=== PATIENT | female | born 1995 | race Caucasian/White ===

== ENCOUNTER → 2022-06-04 07:22 | Outpatient (CLI) | payer OTHER, SELFPAY ==
--- NOTE | 2022-06-04 07:24 | DI.US.S_ITS ---
PROCEDURE: US OB <= 14 WEEKS FETUS INDICATIONS: Dating and viability OUTSIDE/PRIOR DATING DATA: Last menstrual period (LMP): 04/04/2022. LMP-based estimated date of delivery (PRADEEP): 01/09/2023. First dating scan (date and location): 06/04/2022. Estimated date of delivery (PRADEEP) from first dating scan: 01/07/2023. TECHNIQUE: Real-time scanning was performed of the fetus and maternal pelvic organs, with image documentation. Endovaginal scanning was also performed to better visualize the fetus and maternal ovaries. COMPARISON: None. FINDINGS: Embryo: Present with crown-rump length of 2.3 cm corresponding to gestational age of 9 weeks 0 days. Heart rate: 165 beats per minute Maternal organs: Ovaries are unremarkable. Probable left corpus luteum. IMPRESSION: Single living intrauterine . [place]-rump length corresponds to a gestational age of 9 weeks 0 days, concordant with clinical dates. We strive to produce accurate, complete, and clear reports of imaging services. To assist us in improving patient care, this report was composed using standard report templates and voice recognition software. Therefore, it may contain abnormal punctuation, insertions and/or omissions. Occasional wrong-word or sound-alike substitutions may occur. Though we review the report and make efforts to correct it, we do recommend that the report be read carefully in proper context to recognize any text inaccuracies. Dictated by: Dre Fernandez M.D. on 06/04/2022 at 11:14 Approved by: Dre Fernandez M.D. on 06/04/2022 at 11:22
== END ==
PROVIDERS: Referring Provider Obstetrics & Gynecology; Visit Provider Obstetrics & Gynecology
DX: Z34.01 Encounter for supervision of normal first pregnancy, first trimester (principal); Z3A.09 9 weeks gestation of pregnancy
CPT/HCPCS: 76801; 76817

== ENCOUNTER 2022-06-14 15:09 | Emergency (ER) | payer OTHER, SELFPAY ==
[2022-06-14 15:28] VITALS: BP 126/70; PULSE 80; RESP 16; TEMP 37; O2SAT 97; BMI 25.8
[2022-06-14] MEDS: ONDANSETRON 4 MG/2 ML INJ IV (18:08)
[2022-06-14] MEDS: SODIUM CHLORIDE 0.9% 1,000 ML 1000 ML IV ×2 (18:08→19:30)
[2022-06-14 18:28] LABS: Blood Urea Nitrogen 7 mg/dL (7-17); Calcium 9.7 mg/dL (8.4-10.2); Carbon Dioxide 23 mmol/L (22-32); Chloride 100 mmol/L (98-107); Estimated Glomerular Filt Rate > 60 mL/min (>60); Glucose 81 mg/dL (70-100); HEMOLYSIS < 15 (0-50); Potassium 4.3 mmol/L (3.4-5.1); Sodium 134 mmol/L (137-145)
[2022-06-14 18:30] LABS: Add Manual Diff / Slide Review NO; Basophils Absolute Auto 0 /uL (0-100); Basophils Percent Auto 0.2 % (0-2); Eosinophils Absolute Auto 0 /uL (0-450); Eosinophils Percent Auto 0.3 % (2-4); Hematocrit 40.7 % (36-46); Hemoglobin 14.5 g/dL (12.0-16.0); Lymphocytes Absolute Auto 1500 /uL (1100-4500); Lymphocytes Percent Auto 14.7 % (25-40); Mean Corpuscular HGB Conc 35.5 % (30-36); Mean Corpuscular Hemoglobin 31.6 PG (26-34); Mean Corpuscular Volume 88.9 fL (80-100); Monocytes Absolute Auto 400 /uL (0-900); Monocytes Percent Auto 4.3 % (3-14); Neutrophils Absolute Auto 8100 /uL (1500-7000); Neutrophils Percent Auto 80.5 % (50-75); Platelet Count 214 X10^3/uL (150-400); Red Blood Cell Count 4.58 X10^6/uL (4.0-5.2); Red Cell Distribution Width 12.7 % (11.6-14.8)
[2022-06-14 18:58] VITALS: BP 133/75; PULSE 87; RESP 18; O2SAT 99
--- NOTE | 2022-06-14 19:09 | ED_ITS ---
HPI - Nausea/Vomiting/Diarrhea General Chief complaint: Nausea/Vomiting/Diarrhea Stated complaint: Ten weeks , cant keep anything down Time Seen by Provider: 06/14/22 18:07 Source: patient Mode of arrival: Ambulatory Limitations: no limitations History of Present Illness HPI Narrative: Patient is a 27-year-old female. at approximately 10 weeks EGA who is here for evaluation of vomiting. She has had vomiting during her 1st trimester for much of this . She does have Zofran at home. She is having some cramping earlier today but that has since stopped. No loss of fluid. No vaginal bleeding. She has had a decrease in her urine output. She tried the Zofran throughout the past couple days without any improvement of symptoms and has been vomiting so came into the emergency department for evaluation. Related Data Home Medications Medication Instructions Recorded Confirmed prenat.vits,leopoldo,[id number] 1 tab PO DAILY 05/25/22 05/25/22 Previous Rx's Medication Instructions Recorded ondansetron 4 mg disintegrating 4 mg PO Q6H PRN nausea and 05/31/22 tablet vomiting #20 tabs nitrofurantoin 100 mg PO Q12H 5 days #9 caps 06/14/22 monohydrate/macrocrystals 100 mg capsule (Macrobid) Allergies Allergy/AdvReac Type Severity Reaction Status Date / Time No Known Drug Allergies Allergy Verified 06/14/22 15:28 Review of Systems Constitutional Constitutional: Reports system reviewed and no additional complaints, except as documented Gastrointestinal Gastrointestinal: Reports system reviewed and no additional complaints, except as documented Genitourinary Genitourinary: Reports system reviewed and no additional complaints, except as documented Integumentary/Breasts Skin/Breast: Reports system reviewed and no additional complaints, except as documented Hematologic/Lymphatic On Anticoagulants: No Patient History Medical History Healthy adult Surgical History (Updated 05/25/22 @ 15:35 by Leda Jacobsen RN) H/O umbilical hernia repair S/P ASA/PRK (advanced surface ablation photorefractive keratectomy) [place] teeth extracted Social History marital status: number of children: 0 household members: spouse lives independently: Yes caregiver/support person: No housing: house pets and animals: Yes (cats, managing litter boxes; aware of toxo precautions) education level: college (austen's degree) 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/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 ) special pauline needs: No travel history: recent ([place]; URI on return) seatbelt use: always water heater temp set < 120 deg: Yes working smoke detector in home: Yes fire extinguisher in home: Yes carbon monox detector in home: Yes firearms in home: No do you feel safe at home: Yes Smoking Status: Never smoker alcohol intake: former (3/week when not ) during the past year weight has: remained stable well-balanced diet: daily or most days daily servings fruits/ve-4 caffeine: Yes (aware of 200mg limit) Type(s) of exercise: aerobic and weight lifting frequency: 5-6 times per week Smoking Status: Never smoker Substance Use Type: does not use Exam Initial Vital Signs Initial Vital Signs: Vital Signs Temperature 98.6 F 06/14/22 15:28 Pulse Rate 80 06/14/22 15:28 Respiratory Rate 16 06/14/22 15:28 Blood Pressure 126/70 06/14/22 15:28 Pulse Oximetry 97 06/14/22 15:28 Oxygen Delivery Method 06/14/22 15:28 Const General: cooperative and comfortable Resp Effort & Inspection: normal respiratory effort Cardio Rate: regular rate Rhythm: regular rhythm GI Inspection: non-distended Other: Soft abdomen Skin General: no rashes or lesions noted Neuro General: patient alert, patient awake and moves all extremities Extrem General: normal to inspection and capillary refill normal Course Orders Ordered: ED Orders 06/14/22 18:05 Basic Metabolic Panel Stat Complete Blood Count AUTO DIFF Stat 06/14/22 18:40 Urine Culture Stat Urine Microscopic Stat Discontinued Medications Sodium Chloride (Normal Saline 0.9%) 1,000 mls @ 1,000 mls/hr IV BOLUS ONE Stop: 06/14/22 17:02 Last Infusion: 06/14/22 18:59 Dose: 0 mls/hr Documented By: Admin: 06/14/22 18:08 Dose: 1,000 mls/hr Documented By: JUSTINA Sodium Chloride (Normal Saline 0.9%) 1,000 mls @ 1,000 mls/hr IV BOLUS ONE Stop: 06/14/22 20:08 Last Admin: 06/14/22 19:30 Dose: 1,000 mls/hr Documented By: CHET Nitrofurantoin Macrocrystals (Nitrofurantoin Er 100 Mg Capsule) 100 mg PO NOW ONE Stop: 06/14/22 19:10 Last Admin: 06/14/22 19:29 Dose: 100 mg Documented By: CHET Ondansetron HCl (Ondansetron 4 Mg/2 Ml Inj) 4 mg IV NOW PRN PRN Reason: Nausea And Vomiting Last Admin: 06/14/22 18:08 Dose: 4 mg Documented By: JUSTINA Vital Signs Vital signs: Vital Signs - 8 hr 06/14/22 15:28 06/14/22 18:58 06/14/22 20:23 Temperature 98.6 F Pulse Rate 80 87 96 H Respiratory Rate 16 18 16 Blood Pressure 126/70 133/75 Pulse Oximetry 97 99 98 Oxygen Delivery Method Room Air Room Air Room Air MDM - Nausea/Vomiting/Diarrhea Lab Data Attestation: I reviewed the patient's lab results. Result diagrams: 06/14/22 18:05 06/14/22 18:05 Labs: Lab Results 06/14/22 06/14/22 06/14/22 Range/Units 18:05 18:05 18:40 WBC 10.0 (4.5-11.0) X10^3/uL RBC 4.58 (4.0-5.2) X10^6/uL Hgb 14.5 (12.0-16.0) g/dL Hct 40.7 (36-46) % MCV 88.9 (80-100) fL MCH 31.6 (26-34) PG MCHC 35.5 (30-36) % RDW 12.7 (11.6-14.8) % Plt Count 214 (150-400) X10^3/uL Neut % (Auto) 80.5 H (50-75) % Lymph % (Auto) 14.7 L (25-40) % [place] % (Auto) 4.3 (3-14) % Eos % (Auto) 0.3 L (2-4) % Baso % (Auto) 0.2 (0-2) % Neut # (Auto) 8100 H (5595-4160) /uL Lymph # (Auto) 1500 (4106-6192) /uL [place] # (Auto) 400 (0-900) /uL Eos # (Auto) 0 (0-450) /uL Baso # (Auto) 0 (0-100) /uL Sodium 134 L (137-145) mmol/L Potassium 4.3 (3.4-5.1) mmol/L Chloride 100 (98-107) mmol/L Carbon Dioxide 23 (22-32) mmol/L BUN 7 (7-17) mg/dL Creatinine 0.54 (0.52-1.04) mg/dL Estimated GFR > 60 (>60) mL/min BUN/Creatinine Ratio 13.0 (6-22) Glucose 81 (70-100) mg/dL Calcium 9.7 (8.4-10.2) mg/dL Urine RBC 1-5/hpf (0-5/HPF) Urine WBC 5-10/hpf H (0-5/HPF) Ur Squamous Epith Cells 0-1 /hpf (0-5/HPF) Ur Transition Epith Cell 0-1/hpf (0-5/HPF) Urine Bacteria Many (>30) H (None) Ur Culture Indicated? Specimen cultured Point of Care Testing Test Results Positive Urine Dip Bedside Urine Glucose Negative Bedside Urine Bilirubin - Negative Bedside Urine Ketone +++ 80 Urine Specific [place] 1.030 Bedside Urine Occult Blood +/- Bedside Urine pH 6.0 Bedside Urine Protein - Negative Bedside Urine Urobilinogen - Negative Bedside Urine Nitrite + Positive Bedside Urine Leukocytes - Negative Esterase MDM Narrative Medical decision making narrative: Patient did receive fluids and she felt much better. She was tolerating oral intake. She did tolerate her antibiotics. Her urinalysis is nitrite positive and given her status will start her on antibiotics. A culture was pending at the time of discharge. A prescription was sent to the pharmacy of her choice. No indication for any radiologic studies. We discussed potentially sending her home with a different nausea medication but she opted just to stick with the Zofran. She was given return precautions. She expressed understanding and agreement. Discharge Plan Departure Patient Disposition: Home Clinical Impression: Nausea and vomiting during Instructions: Nausea of (Alternative Therapy) Activity Restrictions/Additional Instructions: I do recommend that you start taking the antibiotics as directed. They were sent to [facility] per your request. Next dose will be tomorrow. Continue to increase your fluid intake. Return to the emergency department for any new symptoms. Prescriptions: New nitrofurantoin monohyd/m-cryst [Macrobid] 100 mg capsule 100 mg PO Q12H 5 Days Qty: 9 0RF Rx Instructions: must administer with a meal/food No Action ondansetron 4 mg tablet,disintegrating 4 mg PO Q6H PRN (Reason: nausea and vomiting) Qty: 20 2RF prenat.vits,leopoldo,[id number] Tablet 1 tab PO DAILY Referrals: Denny Singletary MD [Primary Care Provider] - Visit Report Forms: Patient Portal/API
[2022-06-14 19:22] LABS: Bacteria Urine Many (>30); RBC Urine 1-5/HPF (0-5/HPF); Squamous Epithelial Cell Urine 0-1 /HPF (0-5/HPF); Transitional Epi Cells Urine 0-1/HPF (0-5/HPF); WBC Urine 5-10/HPF (0-5/HPF)
[2022-06-14 19:23] LABS: Culture Indicated Urine Specimen Cultured
[2022-06-14] MEDS: NITROFURANTOIN ER 100 MG CAPSULE PO (19:29)
[2022-06-14 20:23] VITALS: PULSE 96; RESP 16; O2SAT 98
== END 2022-06-14 20:25 | disposition home or self-care (01) ==
PROVIDERS: Emergency Medicine; Emergency Provider Emergency Medicine; PCP Obstetrics & Gynecology
DX: O21.9 Vomiting of pregnancy, unspecified (principal); Z3A.10 10 weeks gestation of pregnancy
CPT/HCPCS: 36415; 80048; 81003; 81015; 81025; 85025; 87077; 87086; 87186; 96374; 99284; J2405

== ENCOUNTER → 2022-06-30 16:12 | Outpatient (CLI) | payer OTHER, SELFPAY ==
[2022-06-30 18:11] LABS: Add Manual Diff / Slide Review NO; Basophils Absolute Auto 0 /uL (0-100); Basophils Percent Auto 0.3 % (0-2); Eosinophils Absolute Auto 100 /uL (0-450); Eosinophils Percent Auto 1.2 % (2-4); Hematocrit 38.5 % (36-46); Hemoglobin 13.7 g/dL (12.0-16.0); Lymphocytes Absolute Auto 2000 /uL (1100-4500); Lymphocytes Percent Auto 23.7 % (25-40); Mean Corpuscular HGB Conc 35.6 % (30-36); Mean Corpuscular Hemoglobin 31.5 PG (26-34); Mean Corpuscular Volume 88.6 fL (80-100); Monocytes Absolute Auto 600 /uL (0-900); Monocytes Percent Auto 6.9 % (3-14); Neutrophils Absolute Auto 5700 /uL (1500-7000); Neutrophils Percent Auto 67.9 % (50-75); Platelet Count 222 X10^3/uL (150-400); Red Blood Cell Count 4.35 X10^6/uL (4.0-5.2); Red Cell Distribution Width 12.7 % (11.6-14.8); White Blood Cell Count 8.4 X10^3/uL (4.5-11.0)
[2022-06-30 20:24] LABS: Urine N gonorrhoeae NOT DETECTED
[2022-06-30 20:30] LABS: Urine Chlamydia NOT DETECTED
[2022-07-01 05:49] LABS: RPR Screen Non Reactive (Non Reactive)
[2022-07-01 14:04] LABS: Varicella IgG Antibody 688 index (Immune >165)
[2022-07-01 18:36] LABS: Hep C Virus Ab w/Reflex Quant NEGATIVE s/c (NEGATIVE); Hepatitis B Surface Antigen NEGATIVE s/c (NEGATIVE)
[2022-07-01 18:37] LABS: HIV 1 & 2 Ab/Ag 4th Gen Combo NEGATIVE (NEGATIVE); Rubella Antibody IgG 17.6 IU/mL (>15)
== END ==
PROVIDERS: Referring Provider Obstetrics & Gynecology; Visit Provider Obstetrics & Gynecology
DX: Z34.01 Encounter for supervision of normal first pregnancy, first trimester (principal); Z11.3 Encounter for screening for infections with a predominantly sexual mode of transmission; Z3A.12 12 weeks gestation of pregnancy
CPT/HCPCS: 36415; 80055; 86787; 86803; 86850; 86900; 86901; 87389; 87491; 87591

== ENCOUNTER → 2022-07-08 15:06 | Outpatient (CLI) | payer OTHER, SELFPAY | PROVIDERS: Referring Provider Obstetrics & Gynecology; Visit Provider Obstetrics & Gynecology | DX: Z34.92 Encounter for supervision of normal pregnancy, unspecified, second trimester (principal) | CPT/HCPCS: 36415 ==

== ENCOUNTER → 2022-07-29 08:24 | Outpatient (CLI) | payer OTHER, SELFPAY ==
[2022-07-29 13:40] LABS: Appearance Urine UA CLEAR; Bilirubin Urine UA NEGATIVE (NEGATIVE); Color Urine UA YELLOW; Glucose Urine UA NEGATIVE (Negative); Ketones Urine UA NEGATIVE (NEGATIVE); Leukocyte Esterase Urine UA NEGATIVE (NEGATIVE); Nitrite Urine UA NEGATIVE (Negative); Occult Blood Urine UA NEGATIVE (Negative); Protein Urine UA NEGATIVE (Negative); Urobilinogen Urine UA 0.2 E.U./dL (0.2)
== END ==
PROVIDERS: Visit Provider Obstetrics & Gynecology
DX: Z34.01 Encounter for supervision of normal first pregnancy, first trimester (principal)
CPT/HCPCS: 81003; 87086

== ENCOUNTER → 2022-07-29 08:55 | Outpatient (CLI) | payer OTHER, SELFPAY ==
[2022-07-31 20:03] LABS: AFP Value 29.1 ng/mL (.); Gest Age on Col Date 16.6 weeks (.); Insulin Dep Diabetes No (.); OSBR Risk 1IN 10000 (.); Results Report (.); Test Results *Screen Negative* (.)
[2022-08-02 14:44] LABS: PDF SEE PT SCANS
== END ==
PROVIDERS: Referring Provider Obstetrics & Gynecology; Visit Provider Obstetrics & Gynecology
DX: Z34.02 Encounter for supervision of normal first pregnancy, second trimester (principal); Z3A.16 16 weeks gestation of pregnancy
CPT/HCPCS: 36415; 81003; 82105; 87086

== ENCOUNTER → 2022-08-19 14:13 | Outpatient (CLI) | payer OTHER, SELFPAY ==
--- NOTE | 2022-08-19 14:14 | DI.US.S_ITS ---
PROCEDURE: US OB >= 14 WEEKS FETUS INDICATIONS: 20 WEEK ANATOMY SCAN OUTSIDE/PRIOR DATING DATA: Last menstrual period (LMP): 04/04/2022 LMP-based estimated date of delivery (PRADEEP): 01/09/2023. First dating scan (date and location): 06/04/2022 Estimated date of delivery (PRADEEP) from first dating scan: 01/07/2023. The calculations are made using the working PRADEEP of 01/09/2023. TECHNIQUE: Real-time scanning was performed of the fetus, with image documentation and biometric measurements. Endovaginal scanning: Not indicated COMPARISON: None. FINDINGS: General: A single living intrauterine gestation is present. Presentation: Breech. Placenta: Placental position is posterior, without previa. Amniotic fluid index: 13.9 cm, normal range is 5-24 cm. Single deepest vertical pocket is 4.9 cm. heart rate: 160 beats per minute. Maternal cervical canal: 3.9 cm long. Normal lower limit is 2.5 cm. biometrics: Biparietal diameter: 4.5 cm, 19 weeks, 6 days Head circumference: 16.7 cm, 19 weeks, 3 days. Abdominal circumference: 14.4 cm, 19 weeks, 5 days. Femur length: 3.1 cm, 19 weeks, 4 days. Clinically estimated gestational age: 19 weeks, 4 days Composite gestational age from present scan: 19 weeks, 5 days Estimated weight and percentile: 303 g, 48%. Anatomic survey: Neuro: Ventricles are non-dilated at less than 10 mm. Cisterna magna is normal at 3-11 mm. Cerebellum is normal in size and morphology. Nuchal skin fold: Normal at less than 6 mm between 14-21 weeks gestational age. Face: Nose and lips, facial profile are normal. Spine: No evidence for spina bifida. Heart: 4-chambered heart is present, with normal ventricular outflow tracts. Diaphragm: Diaphragm is intact. Stomach: Left-sided stomach is present. Kidneys: No hydronephrosis. Normal is less than 5 mm in 2nd trimester, less than 7 mm in 3rd trimester. Cord: 3-vessel cord has orthotopic insertion. Bladder: Normal in size. Extremities: All 4 extremities identified. IMPRESSION: 1. Single live intrauterine gestation with fetus in breech presentation. heart rate is 160 beats per minute. Normal amount of amniotic fluid. Normal growth. Estimated weight is at 48%. 2. Normal anatomic survey. We strive to produce accurate, complete, and clear reports of imaging services. To assist us in improving patient care, this report was composed using standard report templates and voice recognition software. Therefore, it may contain abnormal punctuation, insertions and/or omissions. Occasional wrong-word or sound-alike substitutions may occur. Though we review the report and make efforts to correct it, we do recommend that the report be read carefully in proper context to recognize any text inaccuracies. Dictated by: Kenji Aguilar M.D. on 08/19/2022 at 17:04 Approved by: Kenji Aguilar M.D. on 08/19/2022 at 17:05
== END ==
PROVIDERS: Referring Provider Obstetrics & Gynecology; Visit Provider Obstetrics & Gynecology
DX: Z34.02 Encounter for supervision of normal first pregnancy, second trimester (principal); Z3A.19 19 weeks gestation of pregnancy
CPT/HCPCS: 76811

== ENCOUNTER → 2022-09-28 09:29 | Outpatient (CLI) | payer OTHER, SELFPAY ==
[2022-09-28 12:23] LABS: Hematocrit 37.9 % (36-46); Hemoglobin 12.9 g/dL (12.0-16.0)
[2022-09-28 12:48] LABS: GTT (PREG) 1 Hour PP 50gm Dose 80 mg/dL (76-139)
== END ==
PROVIDERS: Referring Provider Obstetrics & Gynecology; Visit Provider Obstetrics & Gynecology
DX: Z34.02 Encounter for supervision of normal first pregnancy, second trimester (principal); Z3A.26 26 weeks gestation of pregnancy
CPT/HCPCS: 36415; 82950; 85014; 85018

== ENCOUNTER → 2022-12-14 08:07 | Outpatient (CLI) | payer OTHER, SELFPAY ==
[2022-12-15 11:09] LABS: Strep Grp B PCR NEG for Grp B Strep
== END ==
PROVIDERS: Visit Provider Obstetrics & Gynecology
DX: Z34.03 Encounter for supervision of normal first pregnancy, third trimester (principal); Z3A.36 36 weeks gestation of pregnancy
CPT/HCPCS: 87653

== ENCOUNTER 2023-01-04 22:48 | Observation (INO) | payer OTHER, SELFPAY ==
[2023-01-05] MEDS: diphenhydrAMINE 50 MG/ML VIAL 25 MG IM (00:16)
[2023-01-05] MEDS: MORPHINE 4 MG/ML INJ 2 MG IM (00:17)
[2023-01-05 01:26] VITALS: BP 135/74; PULSE 81; RESP 16; TEMP 36.4
== END 2023-01-05 00:20 | disposition home or self-care (01) ==
LOC: LABOR 22:50
PROVIDERS: Admitting Provider Family Medicine; Referring Provider Family Medicine; Visit Provider Family Medicine
DX: O47.1 False labor at or after 37 completed weeks of gestation (principal); Z3A.39 39 weeks gestation of pregnancy
CPT/HCPCS: 59025; 96372; G0378; G0379; J1200; J2270

== ENCOUNTER 2023-01-05 06:56 | Inpatient (IN) | payer OTHER, SELFPAY ==
--- NOTE | 2023-01-05 07:46 | P.HPOB_ITS ---
OB HPI Date/Time Date of admission: 01/05/23 Date Patient Seen: 01/05/23 Time Patient Seen: 07:46 History of Present Condition Chief complaint: IUP, 39+3 wks EGA, early labor, GBS negative : 1 Para: 0 Estimated Date of Delivery: 01/05/23 Estimated Gestational Age (weeks): 39+3 Narrative: Esperanza Cuenca is a 27 year old admitted now at 39+3 with active contractions and early cervical w/ BOWI. course has been entirely uneventful with solid early dating and appropriate milestones throughout. GBS is negative. History of Present care: good care Dating criteria: LMP confirmed by 1st trimester US Ultrasounds: normal 1st trimester US and normal mid trimester US Obstetrical complications: none Medical complications: none Preadmission Labs Blood type: O (+) positive -: Antibody screen: negative, GBS status: negative, HBsAG: negative, HIV: neg ative and RPR/VDLR: negative -: Chlamydia screen: not detected and Gonorrhea screen: not detected -: Rubella: immune and Varicella: immune HCT: 37.9 HCAB: negative PAP: Normal Quad screen: Normal (AFP testing negative for ONTD) Cell-free DNA: Low risk female 1 hr GTT: 80 Prior (ies) History: N/A Evaluation Evaluation Baseline heart rate: 150 Variability: Minimal (3-5) monitor accelerations: Absent Monitor Decelerations: Episodic and Variable (Mild) Uterine Contraction Intensity: Moderate Category of Tracing: Non-reactive Status: Category ll Dilation (cm): 3 Effacement (%): 80 Dilation: 3-4 cm Effacement: >/=80% station: 0 Position of cervix: mid Consistency: medium Lerner score: 9 [facility] Medical History (Updated 12/30/22 @ 08:38 by Denny Singletary MD) Abnormal Pap smear of cervix (~2018) Healthy adult Surgical History (Updated 05/25/22 @ 15:35 by Leda Jacobsen RN) H/O umbilical hernia repair S/P ASA/PRK (advanced surface ablation photorefractive keratectomy) [place] teeth extracted Social History marital status: number of children: 0 household members: spouse lives independently: Yes caregiver/support person: No housing: house pets and animals: Yes (cats, managing litter boxes; aware of toxo precautions) education level: college (austen's degree) 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/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 ) special pauline needs: No travel history: recent ([place]; URI on return) seatbelt use: always water heater temp set < 120 deg: Yes working smoke detector in home: Yes fire extinguisher in home: Yes carbon monox detector in home: Yes firearms in home: No do you feel safe at home: Yes Smoking Status: Unknown if ever smoked alcohol intake: former (3/week when not ) during the past year weight has: remained stable well-balanced diet: daily or most days daily servings fruits/ve-4 caffeine: Yes (aware of 200mg limit) Type(s) of exercise: aerobic and weight lifting frequency: 5-6 times per week Meds Home Medications and Allergies Home Medications Medication Instructions Recorded Confirmed Type prenat.vits,leopoldo,[id number] 1 tab PO DAILY 05/25/22 01/05/23 History ondansetron 4 mg disintegrating 4 mg PO Q6H PRN nausea and 06/29/22 01/05/23 Rx tablet vomiting #20 tabs Allergies Allergy/AdvReac Type Severity Reaction Status Date / Time No Known Drug Allergies Allergy Verified 12/30/22 07:56 Review of Systems Review of Systems Narrative: Problem-specific ROS positives included in HPI OB Exam HENMD Head: normal to inspection, normocephalic and atraumatic Eyes General: appearance normal, both eyes and all related structures Resp Effort & Inspection: normal respiratory effort and able to speak in complete sentences Auscultation: clear to auscultation bilaterally Cardio Rate: regular rate Rhythm: regular rhythm Heart Sounds: S1 normal, S2 normal and no murmurs Extremities Lower extremity: Yes normal to inspection GI Inspection: normal to inspection Palpation: Yes soft and Yes no hepatosplenomegaly Uterus Location (Fundal Height): 37 Estimated Weight (lbs): 8 Objective Labs 01/05/23 07:55 Assessment and Plan Assessment and Plan Assessment and Plan narrative: ASSESSMENT 1. Intrauterine , 39+3 wks EGA 2. Early labor at term 3. GBS negative sattus PLAN 1. Admit for labor and delivery 2. See admission orders.
[2023-01-05] MEDS: DEXTROSE 5%-LACTATED RINGERS 1,000 ML 999 ML IV (08:00)
[2023-01-05 08:02] LABS: Add Manual Diff / Slide Review NO; Basophils Absolute Auto 0 /uL (0-100); Basophils Percent Auto 0.4 % (0-2); Eosinophils Absolute Auto 0 /uL (0-450); Eosinophils Percent Auto 0.1 % (2-4); Hematocrit 36.7 % (36-46); Hemoglobin 12.7 g/dL (12.0-16.0); Lymphocytes Absolute Auto 1100 /uL (1100-4500); Lymphocytes Percent Auto 10.1 % (25-40); Mean Corpuscular HGB Conc 34.5 % (30-36); Mean Corpuscular Hemoglobin 30.5 PG (26-34); Mean Corpuscular Volume 88.4 fL (80-100); Monocytes Absolute Auto 400 /uL (0-900); Monocytes Percent Auto 3.5 % (3-14); Neutrophils Absolute Auto 9400 /uL (1500-7000); Neutrophils Percent Auto 85.9 % (50-75); Platelet Count 174 X10^3/uL (150-400); Red Blood Cell Count 4.15 X10^6/uL (4.0-5.2); Red Cell Distribution Width 13.7 % (11.6-14.8)
[2023-01-05 08:35] VITALS: BP 117/68
[2023-01-05] MEDS: FENT 2MCG/ML BUPIV 0.125% EPI 200 MCG/100 ML PLAST..BAG 10 MCG EPIDURAL ×2 (09:10→15:13)
[2023-01-05] MEDS: LACTATED RINGERS 1,000 ML 100 ML IV ×3 (09:10→18:45)
--- NOTE | 2023-01-05 10:24 | PM.OBPNLAB ---
Date/Time Date Patient Seen: 01/05/23 Time Patient Seen: 10:24 Pain Control Pain control: tolerating well and epidural Pelvic Exam Dilation (cm): 4 Effacement (%): 90 station: -1 Amniotic membrane status: Ruptured Comments: AROM, clear fluid 1020 Contractions Contractions on admission: irregular Monitor mode: External Contraction pattern: Irregular Contraction phase: Resting Contraction intensity: Moderate Status status: Category ll Heart Rate Baseline: 155 Monitor Accelerations: Present Monitor Decelerations: Episodic and Variable Monitor Variability: Moderate Assessment and Plan Assessment: active labor Plan: continuous present management and begin patient augmentation
[2023-01-05] MEDS: OXYTOCIN PREMIX 30 UNIT/500 ML PLAST..BAG IV (10:48)
--- NOTE | 2023-01-05 10:49 | PM.AN.REGBLK ---
Regional Block Pre-procedure PMH/ROS narrative: Assess, inteview, consent. G1,P0. Healthy , negative PMH. MP II, Heart/lung assess WNL. Labs: Hct 36.7 % (36-46) 01/05/23 07:55 Plt Count 174 X10^3/uL (150-400) 01/05/23 07:55 Medications: Current Medications Generic Name Dose Route Start Last Admin Trade Name Freq PRN Reason Stop Dose Admin Calcium Carbonate 1,000 mg 01/05/23 07:43 Calcium Carbonate 500 Mg Tab PO Q4HR PRN Dyspepsia Carboprost Tromethamine 250 mcg 01/05/23 07:41 Carboprost 250 Mcg/Ml Ampul IM Q90M PRN Bleeding Fentanyl 50 mcg 01/05/23 07:43 Fentanyl 100 Mcg/2 Ml Inj IV Q1H PRN Pain, Moderate (4-6) Oxytocin/Lactated Ringer's 30 unit in 500 mls @ 200 mls/hr 01/05/23 07:41 Oxytocin Premix IV CONT PRN Bleeding Protocol Tranexamic Acid 1,000 mg/ 100 mls @ 200 mls/hr 01/05/23 07:41 Sodium Chloride IV NOW PRN Bleeding Lactated Ringer's 1,000 mls @ 100 mls/hr 01/05/23 07:45 01/05/23 09:10 Lactated Ringers IV 100 mls/hr CONT ANDREW Administration Oxytocin/Lactated Ringer's 30 unit in 500 mls @ 2 mls/hr 01/05/23 10:25 Oxytocin Premix IV TITRATE ANDREW Protocol 2 MILLIUNIT/MIN Lidocaine HCl 20 ml 01/05/23 07:41 Lidocaine 1% 20 Ml INJ INTRA-OP PRN Post Delivery Methylergonovine Maleate 0.2 mg 01/05/23 07:41 Methylergonovine 0.2 Mg Tablet PO Q6HR PRN Heavy Bleeding Methylergonovine Maleate 0.2 mg 01/05/23 07:41 Methylergonovine 0.2 Mg/Ml Vial IM NOW PRN Bleeding Misoprostol 800 mcg 01/05/23 07:41 Misoprostol 200 Mcg Tablet UT NOW PRN Bleeding Misoprostol 400 mcg 01/05/23 07:41 Misoprostol 200 Mcg Tablet SL NOW PRN Bleeding Naloxone HCl 0.2 mg 01/05/23 07:41 Naloxone 0.4 Mg/Ml Vial IV Q2MIN PRN Opiate Reversal Ondansetron HCl 8 mg 01/05/23 12:00 Ondansetron 4 Mg/2 Ml Inj IV Q6HR ANDREW Oxytocin 10 unit 01/05/23 07:41 Oxytocin 10 Unit/Ml Vial IM NOW PRN Bleeding Allergies: Allergies Allergy/AdvReac Type Severity Reaction Status Date / Time No Known Drug Allergies Allergy Verified 12/30/22 07:56 Procedure Insertion date: 01/05/23 Insertion time: 09:05 Prep/Local: betadine x3 Interspace: L4-5 Patient position: sitting Needle: 17 gauge Tuohy Loss of resistance with: saline GIANLUCA at (cm): 7 Catheter placed at SKIN (cm): 13 Insertion: No Paresthesia with insertion, No Paresthesia with injection and No Test dose reaction Initial Medications TEST DOSE time: 09:07 BOLUS DOSE time: 09:11 BOLUS DOSE (mL): 8 BOLUS DOSE med: 0.25% bupivacaine Infusion INFUSION: 0.125% bupivacaine and with fentanyl 2 mcg/mL Initial rate (mL/hr): 10 Subsequent interventions: 11 - initial dose YASMIN with Fentanyl 100mcg AND 8mL of 0.25% bupivacaine. Patient pain 9/10 prior to YASMIN, 0/10 following. Dermatone T8 adequate relief
--- NOTE | 2023-01-05 21:54 | P.PCNOB_ITS ---
Labor & Delivery Delivery date: 01/05/23 Intrapartal Events: Prolonged 2nd Stage > 2.5 hours Delivery augmentation: pitocin Delivery monitor: external FHT and external uterine Route of delivery: vacuum extraction Indication for instrumentation: maternal exhaustion L&D Laceration Description: Periurethral - 1st Degree (Right side), Perineal - 3rd Degree and Vaginal - 3rd Degree Delivery repair: vicryl (2 0 for repair of partial third-degree tear) and chromic (3-0) Estimated blood loss (mL): 450 Anesthesia Type: Epidural Narrative: Patient arrived on Labor and delivery in early labor. She had artificial rupture membranes, clear fluid and did get Pitocin augmentation of labor. She received an epidural catheter for pain control. heart tones category 1-2 throughout labor. Patient progressed to complete dilation and pushed for greater than 4 hours. There was a gradual increase of baseline from 150s to 170s with intermittent variable to late decelerations. Position changes and IV fluid bolus were performed periodically. Patient asked to proceed with vacuum extraction for maternal exhaustion. The vacuum was attached with traction for 2 contractions. The delivered over an intact perineum. There was a loose nuchal cord that was released followed by delivery of the infant and the viable female infant was placed on maternal abdomen. After 2 minutes the cord was clamped and cut. Placenta delivered spontaneously, intact, with 3 vessels. There were no cervical tears. There was a third-degree vaginal tear on the right side in a partial third-degree perineal tear as well as a right labial tear. The partial third-degree tear of the rectum was repaired with 2 0 Vicryl suture x2. The third-degree vaginal tear was repaired with 3-0 chromic suture. The perineal tear was repaired with 3-0 chromic suture in two-layer fashion. The labial tear was repaired with 4-0 chromic suture. Finger in the rectum did not reveal any sutures in the rectum or tears in the rectum. Estimated blood loss 450 cc. Both infant and mother doing well. [place] Baby 1: Infant gender: Female Presentation: vertex Position: Occiput Posterior Placenta delivery description: Spontaneous Cord Vessel Description: 3 Vessels and Nuchal Cord score (1 min): 8 score (5 min): 9 Plan for aftercare: Routine care
[2023-01-05] MEDS: ACETAMINOPHEN 325 MG TABLET 650 MG PO (23:52)
[2023-01-05] MEDS: DERMOPLAST SPRAY 20% 60 ML 1 SPRAY TOP (23:52)
[2023-01-05] MEDS: IBUPROFEN 600 MG TABLET PO (23:52)
[2023-01-06 06:47] LABS: Add Manual Diff / Slide Review NO; Basophils Absolute Auto 0 /uL (0-100); Basophils Percent Auto 0.2 % (0-2); Eosinophils Absolute Auto 0 /uL (0-450); Eosinophils Percent Auto 0.2 % (2-4); Hematocrit 30.2 % (36-46); Hemoglobin 10.4 g/dL (12.0-16.0); Lymphocytes Absolute Auto 1800 /uL (1100-4500); Lymphocytes Percent Auto 10.5 % (25-40); Mean Corpuscular HGB Conc 34.6 % (30-36); Mean Corpuscular Hemoglobin 30.7 PG (26-34); Mean Corpuscular Volume 88.7 fL (80-100); Monocytes Absolute Auto 1400 /uL (0-900); Neutrophils Absolute Auto 14000 /uL (1500-7000); Neutrophils Percent Auto 81.1 % (50-75); Platelet Count 162 X10^3/uL (150-400); Red Blood Cell Count 3.41 X10^6/uL (4.0-5.2); Red Cell Distribution Width 13.9 % (11.6-14.8); White Blood Cell Count 17.3 X10^3/uL (4.5-11.0)
[2023-01-06] MEDS: ACETAMINOPHEN 325 MG TABLET 650 MG PO ×2 (08:04→14:57)
[2023-01-06] MEDS: PRENATAL VIT,CALC/IRON/FOLIC 1 TABLET 1 TAB PO (08:05)
[2023-01-06] MEDS: IBUPROFEN 600 MG TABLET PO ×2 (08:05→14:57)
[2023-01-06] MEDS: FERROUS SULFATE 325 MG TABLET PO (08:05)
[2023-01-06] MEDS: DOCUSATE 100 MG CAPSULE PO (08:05)
[2023-01-06] MEDS: OXYCODONE IR 5 MG TABLET PO ×3 (08:06→18:15)
--- NOTE | 2023-01-06 13:22 | PM.OBDS.1 ---
Discharge Providers Provider Date of admission: 01/05/23 06:56 Discharge Date: 01/06/23 Primary care physician: Kip CRAIG Provider Consults: 01/05/23 07:41 Consult to Anesthesiology Urgent Comment: Consulting Provider: Denny Singletary Reason for consultation: Epidural Has provider been notified: No 01/06/23 21:51 Consult to Lab Support Service Tech Routine Comment: Discharge provider: Denny Singletary MD Summary Hospital Course Date Patient Seen: 01/06/23 Time Patient Seen: 13:24 Diagnoses: Intrauterine gestation, [place], 39+ 3 weeks gestational age, delivered by spontaneous vaginal Hospital Course: Esperanza was admitted in early active labor on the morning of 01/05/2023 and progressed well following AROM and placement of an epidural catheter with Pitocin augmentation. She delivered by vacuum assisted vaginal on the evening of 01/05/2023 a viable female with Apgars of 8/9, weight 3307 g (7 lb 4.7 oz). Following delivery the patient and her have done extremely well with the mother experiencing prompt return of bladder and bowel function, she is ambulating independently, tolerating regular diet, and her pain is well controlled with oral pain medications. She will be discharged at this time to home in an afebrile normotensive condition after counseling regarding precautionary symptoms, limitations of activity, medications, and plans for follow-up which will be in 6 weeks at which time she will likely receive her 1st Depo-Provera injection for contraception. Medications at the time of discharge will include resumption of all pre delivery medications as well as oxycodone 5 mg p.o. q.6 hours as needed pain dispense 10 with no refills, ibuprofen 600 mg p.o. q.6 hours as needed pain, and Colace 100 mg p.o. b.i.d. as needed constipation. Peripartum Data Infant Delivery Method: Natural Vaginal Laceration Description: Perineal - 2nd Degree and Vaginal - 2nd Degree Episiotomy description: None Procedures: Continuous lumbar epidural Vacuum assisted vaginal delivery complications: none 1: Gender: Female Disposition of : home Status at Discharge Cognitive/behavioral status at discharge: oriented Functional status at discharge: independent ambulation Overall status at discharge: patient is progressing back to baseline Time Spent with Patient Time attestation: Total time spent providing and/or coordinating discharge services: Time spent: Less than 30 minutes Objective Labs 01/06/23 06:30 Labs: Laboratory Results - last 24 hr 01/06/23 06:30 WBC 17.3 H D RBC 3.41 L Hgb 10.4 L Hct 30.2 L MCV 88.7 MCH 30.7 MCHC 34.6 RDW 13.9 Plt Count 162 Neut % (Auto) 81.1 H Lymph % (Auto) 10.5 L [place] % (Auto) 8.0 Eos % (Auto) 0.2 L Baso % (Auto) 0.2 Neut # (Auto) 40383 H Lymph # (Auto) 1800 [place] # (Auto) 1400 H Eos # (Auto) 0 Baso # (Auto) 0 Exam Const General: cooperative and comfortable Nutritional Appearance: average body habitus Orientation: alert and oriented x3 HENMT Head: normal to inspection, atraumatic and abrasion Ears: hearing grossly normal bilaterally Face and sinus: face symmetric Eyes General: appearance normal, both eyes and all related structures Conjunctivae: conjunctivae normal Sclera: sclerae normal EOM: EOM intact bilaterally Neck Neck: normal visual inspection Resp Effort & Inspection: normal respiratory effort and able to speak in complete sentences GI Inspection: normal to inspection Palpation: soft, no hepatosplenomegaly and mass (Firm, nontender fundus, U -4) External Female Exam: other (Intact, no significant bleeding noted) Extrem General: no calf tenderness Psych Appearance: grossly normal Mental Status: mental status grossly normal Speech and Movement: speech and movement normal Mood: congruent mood Affect: normal affect Attitude: cooperative Thought Process: normal Thought Content: normal Judgment: judgment good Discharge Plan Discharge Plan Patient Disposition: Home Provider Discharge Comment: Please review the written instructions you received when you were discharged from the hospital. Your follow-up appointment will be scheduled for 6 weeks after delivery and I look forward to seeing you then. If however in the meanwhile, you have any issues, concerns, or questions, please contact me either through the office phone at [phone], or via the patient portal. Discharge orders & Medications Prescriptions: New docusate sodium 100 mg Capsule 100 mg PO BID PRN (Reason: constipation) Qty: 60 0RF ibuprofen 600 mg Tablet 600 mg PO Q6HR PRN (Reason: Pain, Mild (1-3)) Qty: 60 2RF oxycodone 5 mg Tablet 5 mg PO Q4HR PRN (Reason: Pain, Moderate (4-6)) Qty: 10 0RF Continued ondansetron 4 mg tablet,disintegrating 4 mg PO Q6H PRN (Reason: nausea and vomiting) Qty: 20 2RF prenat.vits,leopoldo,[id number] Tablet 1 tab PO DAILY Follow up/Referrals: ProviderKip [Primary Care Provider] - Denny Singletary MD [Physician] - Discharge Health Status Multidrug resistant organism: No MDRO Diet/Activity/Treatments Diet: Diet as Tolerated Activity: As tolerated Other treatments: [id number] Tylenol may be used for additional pain relief. Dmvz-byq-lscqyng MiraLax may also be used as needed for relief of constipation. Skin/Wound/Dressing Care Report to your healthcare provider any signs of infection, such as:: chills, fever, increased pain, unusual drainage and unusual redness Dressing: N/A Visit Report/Discharge Packet Instructions: DI for Labor and Delivery, Vaginal , DI for and Nipple Soreness, DI for Prescription Opioid Use Discharge Data Primary Care Provider: Kip Zaidi
[2023-01-06 17:27] VITALS: BP 116/73; PULSE 99; RESP 14; TEMP 36.6
== END 2023-01-06 18:30 | disposition home or self-care (01) | DRG 768 ==
PROVIDERS: Obstetrics & Gynecology; Specialist; Admitting Provider Family Medicine; Referring Provider Family Medicine; Visit Provider Family Medicine
DX: O70.20 Third degree perineal laceration during delivery, unspecified (principal); Z37.0 Single live birth; O47.1 False labor at or after 37 completed weeks of gestation; Z3A.39 39 weeks gestation of pregnancy; Z67.40 Type O blood, Rh positive; O71.82 Other specified trauma to perineum and vulva
CPT/HCPCS: 36415; 59025; 59050; 59400; 59409; 85025; 86850; 86900; 86901; 96372; G0378; G0379; J1200; J2270; J2590; J7121

== ENCOUNTER 2024-08-17 06:34 | Emergency (ER) | payer OTHER, SELFPAY ==
[2024-08-17 06:44] VITALS: BP 129/58; PULSE 88; RESP 18; TEMP 36.1; O2SAT 95; BMI 25.8
--- NOTE | 2024-08-17 06:51 | ED.NAVMDI ---
HPI - Nausea/Vomiting/Diarrhea General Chief complaint: Nausea/Vomiting/Diarrhea Stated complaint: 9 weeks and can't keep anything down Time Seen by Provider: 08/17/24 06:50 Source: patient Mode of arrival: Ambulatory History of Present Illness HPI Narrative: Patient is a female at approximately 9 weeks gestation who presents with severe nausea and vomiting for the past 24 hours. She has been unable to keep anything down during this period. She has been prescribed Zofran, which she took this morning at 6:00 AM, but it has not provided relief. This is her second , with no known complications in the current or previous . She reports mild cramping but no vaginal bleeding, discharge, or other significant complaints. Medications: Glen VALENTINO complaint: nausea and vomiting Related Data Home Medications Medication Instructions Recorded Confirmed vit no.95-ferrous 1 tab PO DAILY 07/31/24 07/31/24 fumarate 28 mg-folic acid 800 mcg tablet ( Multivitamins) Previous Rx's Medication Instructions Recorded ondansetron 4 mg disintegrating 4 mg PO Q6H PRN nausea and 07/31/24 tablet vomiting #20 tabs Allergies Allergy/AdvReac Type Severity Reaction Status Date / Time No Known Drug Allergies Allergy Verified 07/31/24 08:03 Review of Systems Review of Systems Narrative: Constitutional: No other complaints, no known exposure to illness. Gastrointestinal: Reports severe nausea and vomiting for the past 24 hours, no diarrhea. Genitourinary: Mild cramping, no vaginal bleeding or discharge. Neurological: No headache or vision changes. Musculoskeletal: No swelling in the legs. 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 ) special pauline needs: No travel history: recent (domestic only) seatbelt use: always water heater temp set < 120 deg: Yes working smoke detector in home: Yes fire extinguisher in home: Yes carbon monox detector in home: Yes firearms in home: No do you feel safe at home: Yes Smoking Status: Never smoker second hand exposure: No alcohol intake: former (2~/week when not ) substance use type: does not use during the past year weight has: other (back to normal non- weight) well-balanced diet: daily or most days daily servings fruits/ve-4 caffeine: Yes (single cup coffee in AM) Type(s) of exercise: running frequency: 5-6 times per week Smoking Status: Never smoker Exam Narrative Exam Narrative: General: Well appearing, well nourished, in no distress. Skin: Good turgor, no rash, unusual bruising or prominent lesions. Head: Normocephalic, atraumatic. HEENT: Conjunctiva clear, EOM intact, PERRL, Mucous membranes moist. Neck: Supple, normal ROM. Heart: Regular rate and rhythm, no murmur or gallop or rubs. Lungs: Clear to auscultation. No rales, rhonchi, or wheezes. Abdomen: Soft and nontender. Bowel sounds normal. No mass or hernia. Back: Spine normal without deformity or tenderness, no CVA tenderness. Extremities: No deformities, edema. Peripheral pulses intact. Neurologic: CN 2-12 normal. Normal sensation and motor exam. Psychiatric: Oriented X3. Normal mood and affect. Initial Vital Signs Initial Vital Signs: Vital Signs Temperature 97.0 F L 08/17/24 06:44 Pulse Rate 88 08/17/24 06:44 Respiratory Rate 18 08/17/24 06:44 Blood Pressure 129/58 L 08/17/24 06:44 Pulse Oximetry 95 08/17/24 06:44 Oxygen Delivery Method Room Air 08/17/24 06:44 Course Orders Ordered: Discontinued Medications Lactated Ringer's (Lactated Ringers) 500 mls @ 1,000 mls/hr IV BOLUS ONE Stop: 08/17/24 07:27 Last Infusion: 08/17/24 07:47 Dose: Infused Documented By: Admin: 08/17/24 07:19 Dose: 1,000 mls/hr Documented By: JOHANNA Lactated Ringer's (Lactated Ringers) 500 mls @ 1,000 mls/hr IV BOLUS ONE Stop: 08/17/24 08:15 Last Infusion: 08/17/24 08:19 Dose: Infused Documented By: Admin: 08/17/24 07:47 Dose: 1,000 mls/hr Documented By: JOHANNA Ondansetron HCl (Ondansetron 4 Mg/2 Ml Inj) 4 mg IV NOW ONE Stop: 08/17/24 06:59 Last Admin: 08/17/24 07:19 Dose: 4 mg Documented By: JOHANNA Vital Signs Vital signs: Vital Signs - 8 hr 08/17/24 06:44 Temperature 97.0 F L Pulse Rate 88 Respiratory Rate 18 Blood Pressure 129/58 L Pulse Oximetry 95 Oxygen Delivery Method Room Air MDM - Nausea/Vomiting/Diarrhea Differential Diagnosis Differential diagnosis: Likely other (Hyperemesis gravidarum) Lab Data 08/17/24 06:48 08/17/24 06:48 Labs: Lab Results 08/17/24 Range/Units 06:48 WBC 8.6 (4.5-11.0) X10^3/uL RBC 4.70 (4.0-5.2) X10^6/uL Hgb 14.5 (12.0-16.0) g/dL Hct 41.4 (36-46) % MCV 88.1 (80-100) fL MCH 30.8 (26-34) PG MCHC 34.9 (30-36) % RDW 13.0 (11.6-14.8) % Plt Count 232 (150-400) X10^3/uL Neut % (Auto) 73.7 (50-75) % Lymph % (Auto) 18.1 L (25-40) % [place] % (Auto) 6.9 (3-14) % Eos % (Auto) 0.7 L (2-4) % Baso % (Auto) 0.6 (0-2) % Neut # (Auto) 6300 (3047-4899) /uL Lymph # (Auto) 1600 (0095-3110) /uL [place] # (Auto) 600 (0-900) /uL Eos # (Auto) 100 (0-450) /uL Baso # (Auto) 100 (0-100) /uL Sodium 136 L (137-145) mmol/L Potassium 3.9 (3.4-5.1) mmol/L Chloride 105 (98-107) mmol/L Carbon Dioxide 20 L (22-32) mmol/L BUN 8 (7-17) mg/dL Creatinine 0.65 (0.52-1.04) mg/dL Estimated GFR > 60 (>60) mL/min BUN/Creatinine Ratio 12.3 (6-22) Glucose 95 (70-100) mg/dL Calcium 9.4 (8.4-10.2) mg/dL Total Bilirubin 0.9 (0.2-1.3) mg/dL AST 24 (14-36) IU/L ALT 22 (<35) IU/L Alkaline Phosphatase 59 (38-126) U/L Total Protein 7.4 (6.3-8.2) g/dL Albumin 4.4 (3.5-5.0) g/dL Globulin 3.0 (1.7-4.1) g/dL Albumin/Globulin Ratio 1.5 (1.0-2.8) Patient's lab work was reviewed which is largely reassuring, no significant electrolyte abnormalities that will require ED intervention at this time, patient has normal LFTs, kidney function intact. MDM Narrative Medical decision making narrative: INITIAL EVALUATION AND PLAN: - Administer IV fluids for rehydration. - Consider alternative antiemetics if Zofran remains ineffective. - Monitor for electrolyte imbalances and obtain labs. - Reassess after fluid administration and consider additional dose of Zofran. - Evaluate for potential viral causes if symptoms persist. - Differential diagnosis includes but is not limited to: hyperemesis gravidarum, viral gastroenteritis, electrolyte abnormality and other gastrointestinal conditions. Well-appearing female approximately 9 weeks presenting due to vomiting despite Zofran home currently has appointment in the next several days for confirmatory ultrasound no vaginal bleeding, abdominal discomfort unable to keep down fluids for the last 24 hours no blood in the vomit. Stable vital signs. -bedside ultrasound was performed that confirmed intrauterine , heart rate acquired at 158 On re-evaluation patient has tolerated p.o. challenge, completed fluids and is feeling much improved. Will be discharged from the emergency department at this time with follow-up with obstetric care team Discharge Plan Departure Patient Disposition: Home Clinical Impression: Acute vomiting Instructions: DI for Hyperemesis Gravidarum Prescriptions: No Action ondansetron 4 mg tablet,disintegrating 4 mg PO Q6H PRN (Reason: nausea and vomiting) Qty: 20 1RF PNV cmb#95-ferrous fumarate-FA [ Multivitamins] 28 mg iron- 800 mcg tablet 1 tab PO DAILY Referrals: ProviderKip [Primary Care Provider] - Stand Alone Forms: Patient Portal/API/Survey
[2024-08-17 07:15] LABS: Add Manual Diff / Slide Review NO; Basophils Absolute Auto 100 /uL (0-100); Basophils Percent Auto 0.6 % (0-2); Eosinophils Absolute Auto 100 /uL (0-450); Eosinophils Percent Auto 0.7 % (2-4); Hematocrit 41.4 % (36-46); Hemoglobin 14.5 g/dL (12.0-16.0); Lymphocytes Absolute Auto 1600 /uL (1100-4500); Lymphocytes Percent Auto 18.1 % (25-40); Mean Corpuscular HGB Conc 34.9 % (30-36); Mean Corpuscular Hemoglobin 30.8 PG (26-34); Mean Corpuscular Volume 88.1 fL (80-100); Monocytes Absolute Auto 600 /uL (0-900); Monocytes Percent Auto 6.9 % (3-14); Neutrophils Absolute Auto 6300 /uL (1500-7000); Neutrophils Percent Auto 73.7 % (50-75); Platelet Count 232 X10^3/uL (150-400); White Blood Cell Count 8.6 X10^3/uL (4.5-11.0)
[2024-08-17] MEDS: ONDANSETRON 4 MG/2 ML INJ IV (07:19)
[2024-08-17] MEDS: LACTATED RINGERS 500 ML 1000 ML IV ×2 (07:19→07:47)
[2024-08-17 07:20] LABS: Alanine Aminotransferase 22 IU/L (<35); Albumin 4.4 g/dL (3.5-5.0); Albumin Globulin Ratio 1.5 (1.0-2.8); Alkaline Phosphatase 59 U/L (38-126); Aspartate Aminotransferase 24 IU/L (14-36); BUN Creatinine Ratio 12.3 (6-22); Bilirubin Total 0.9 mg/dL (0.2-1.3); Blood Urea Nitrogen 8 mg/dL (7-17); Calcium 9.4 mg/dL (8.4-10.2); Carbon Dioxide 20 mmol/L (22-32); Chloride 105 mmol/L (98-107); Estimated Glomerular Filt Rate > 60 mL/min (>60); Glucose 95 mg/dL (70-100); HEMOLYSIS < 15 (0-50); Potassium 3.9 mmol/L (3.4-5.1); Sodium 136 mmol/L (137-145); Total Protein 7.4 g/dL (6.3-8.2)
--- NOTE | 2024-08-17 08:19 | PC.NURSE ---
refusing po challenge
[2024-08-17 08:57] VITALS: BP 109/63; PULSE 79; RESP 16; TEMP 36.6; O2SAT 98
--- NOTE | 2024-08-17 08:57 | PC.NURSE ---
stated okay to not have urine sample
== END 2024-08-17 08:58 | disposition home or self-care (01) ==
PROVIDERS: Emergency Provider Emergency Medicine
DX: O21.9 Vomiting of pregnancy, unspecified (principal); Z3A.09 9 weeks gestation of pregnancy
CPT/HCPCS: 36415; 80053; 85025; 96361; 96374; 99284; J2405

== ENCOUNTER 2024-08-20 17:45 | Emergency (ER) | payer OTHER, SELFPAY ==
[2024-08-20 17:49] VITALS: BP 116/70; PULSE 88; RESP 16; TEMP 37.1; O2SAT 98; BMI 25.8
[2024-08-20 18:09] LABS: Add Manual Diff / Slide Review NO; Basophils Absolute Auto 0 /uL (0-100); Basophils Percent Auto 0.4 % (0-2); Eosinophils Absolute Auto 100 /uL (0-450); Eosinophils Percent Auto 1.2 % (2-4); Hematocrit 40.6 % (36-46); Hemoglobin 14.2 g/dL (12.0-16.0); Lymphocytes Absolute Auto 1800 /uL (1100-4500); Lymphocytes Percent Auto 22.3 % (25-40); Mean Corpuscular Hemoglobin 30.7 PG (26-34); Mean Corpuscular Volume 87.9 fL (80-100); Monocytes Absolute Auto 800 /uL (0-900); Monocytes Percent Auto 9.8 % (3-14); Neutrophils Absolute Auto 5300 /uL (1500-7000); Neutrophils Percent Auto 66.3 % (50-75); Platelet Count 245 X10^3/uL (150-400); Red Blood Cell Count 4.62 X10^6/uL (4.0-5.2); Red Cell Distribution Width 12.7 % (11.6-14.8); White Blood Cell Count 8.1 X10^3/uL (4.5-11.0)
[2024-08-20 18:23] LABS: Alanine Aminotransferase 17 IU/L (<35); Albumin 4.4 g/dL (3.5-5.0); Albumin Globulin Ratio 1.5 (1.0-2.8); Alkaline Phosphatase 62 U/L (38-126); Aspartate Aminotransferase 22 IU/L (14-36); BUN Creatinine Ratio 9.7 (6-22); Bilirubin Total 1.1 mg/dL (0.2-1.3); Blood Urea Nitrogen 6 mg/dL (7-17); Calcium 9.4 mg/dL (8.4-10.2); Carbon Dioxide 19 mmol/L (22-32); Chloride 102 mmol/L (98-107); Estimated Glomerular Filt Rate > 60 mL/min (>60); Glucose 92 mg/dL (70-100); HEMOLYSIS < 15 (0-50); Potassium 3.6 mmol/L (3.4-5.1); Sodium 134 mmol/L (137-145); Total Protein 7.4 g/dL (6.3-8.2)
--- NOTE | 2024-08-20 19:10 | PC.NURSE ---
Pt sitting in waiting room and asks for her IV to be removed so she can go home. I asked if pt is feeling better and she states no, still nauseated. I asked pt if she would like me to ask the provider for nausea medication while she is waiting for a room, pt responds no thank you, I want to go home and think I'll just try to sleep. I do have a appointment tomorrow with my doctor. Removed pt's IV and pt signed VDC paperwork. Pt ambulated out of department.
== END 2024-08-20 19:20 | disposition left against medical advice (07) ==
PROVIDERS: Emergency Provider Emergency Medicine
DX: O21.9 Vomiting of pregnancy, unspecified (principal); Z3A.09 9 weeks gestation of pregnancy
CPT/HCPCS: 80053; 85025; 99281

== ENCOUNTER → 2024-08-21 09:34 | Outpatient (CLI) | payer OTHER, SELFPAY ==
[2024-08-21 16:14] LABS: Urine N gonorrhoeae NOT DETECTED
[2024-08-21 16:28] LABS: Urine Chlamydia NOT DETECTED
== END ==
PROVIDERS: Visit Provider Student in an Organized Health Care Education/Training Program
DX: Z11.3 Encounter for screening for infections with a predominantly sexual mode of transmission (principal)
CPT/HCPCS: 87491; 87591

== ENCOUNTER → 2024-09-11 12:04 | Outpatient (CLI) | payer OTHER, SELFPAY ==
[2024-09-11 13:15] LABS: Natera Collection Specimen Collected
[2024-09-11 13:17] LABS: Add Manual Diff / Slide Review NO; Basophils Absolute Auto 0 /uL (0-100); Basophils Percent Auto 0.4 % (0-2); Eosinophils Absolute Auto 100 /uL (0-450); Eosinophils Percent Auto 1.5 % (2-4); Hemoglobin 13.4 g/dL (12.0-16.0); Lymphocytes Absolute Auto 1400 /uL (1100-4500); Lymphocytes Percent Auto 20.8 % (25-40); Mean Corpuscular HGB Conc 35.2 % (30-36); Mean Corpuscular Hemoglobin 31.1 PG (26-34); Mean Corpuscular Volume 88.3 fL (80-100); Monocytes Absolute Auto 400 /uL (0-900); Monocytes Percent Auto 6.2 % (3-14); Neutrophils Absolute Auto 4700 /uL (1500-7000); Neutrophils Percent Auto 71.1 % (50-75); Platelet Count 233 X10^3/uL (150-400); Red Cell Distribution Width 13.1 % (11.6-14.8); White Blood Cell Count 6.5 X10^3/uL (4.5-11.0)
[2024-09-11 15:19] LABS: Hepatitis B Surface Antigen NEGATIVE s/c (NEGATIVE); Rubella Antibody IgG 12.5 IU/mL (>15)
[2024-09-11 15:35] LABS: HIV 1 & 2 Ab/Ag 4th Gen Combo NEGATIVE (NEGATIVE); Hep C Virus Ab w/Reflex Quant NEGATIVE s/c (NEGATIVE)
[2024-09-12 08:11] LABS: Varicella IgG Antibody Reactive (Non Reactive)
[2024-09-13 04:38] LABS: RPR Screen Non Reactive (Non Reactive)
== END ==
PROVIDERS: Referring Provider Obstetrics & Gynecology; Visit Provider Obstetrics & Gynecology
DX: Z34.81 Encounter for supervision of other normal pregnancy, first trimester (principal)
CPT/HCPCS: 36415; 80055; 86787; 86803; 86850; 86900; 86901; 87389

== ENCOUNTER → 2024-11-06 11:00 | Outpatient (CLI) | payer OTHER, SELFPAY ==
--- NOTE | 2024-11-06 11:02 | DI.US.S_ITS ---
PROCEDURE: US OB >= 14 WEEKS FETUS INDICATIONS: 20 week anatomy scan OUTSIDE/PRIOR DATING DATA: Working PRADEEP: 03/24/2025 TECHNIQUE: Real-time scanning was performed of the fetus, with image documentation and biometric measurements. Endovaginal scanning: Not performed COMPARISON: [facility], , OB >= 14 WEEKS FETUS, 08/19/2022, 14:33. FINDINGS: General: A single living intrauterine gestation is present. Presentation: Variable. Placenta: Placental position is anterior , without previa. Amniotic fluid index: 16.8 cm, normal range is 5-24 cm. Single deepest vertical pocket is 4.8 cm. heart rate: 136 beats per minute. Maternal cervical canal: 4.7 cm long. Normal lower limit is 2.5 cm. biometrics: Biparietal diameter: 4.9 centimeters, 20 weeks 6 days Head circumference: 17.5 centimeters, 20 weeks 0 days Abdominal circumference: 15.6 centimeters, 20 weeks 5 days Femur length: 3.2 centimeters, 20 weeks 1 day Clinically estimated gestational age: 20 weeks 2 days Composite gestational age from present scan: 20 weeks 3 days Estimated weight and percentile: 352 grams, 52 percentile Anatomic survey: Neuro: Ventricles are non-dilated at less than 10 mm. Cisterna magna is normal at 3-11 mm. Cerebellum is normal in size and morphology. Nuchal skin fold: Normal at less than 6 mm between 14-21 weeks gestational age. Face: Nose and lips, facial profile are normal. Spine: No evidence for spina bifida. Heart: 4-chambered heart is present, with normal ventricular outflow tracts. Diaphragm: Diaphragm is intact. Stomach: Left-sided stomach is present. Kidneys: No hydronephrosis. Normal is less than 5 mm in 2nd trimester, less than 7 mm in 3rd trimester. Cord: 3-vessel cord has orthotopic insertion. Bladder: Normal in size. Extremities: All 4 extremities identified. IMPRESSION: Single living intrauterine at 20 weeks 2 days, PRADEEP of 03/24/2025. Normal anatomy survey. Estimated weight of 352 grams, 52 percentile. We strive to produce accurate, complete, and clear reports of imaging services. To assist us in improving patient care, this report was composed using standard report templates and voice recognition software. Therefore, it may contain abnormal punctuation, insertions and/or omissions. Occasional wrong-word or sound-alike substitutions may occur. Though we review the report and make efforts to correct it, we do recommend that the report be read carefully in proper context to recognize any text inaccuracies. Dictated by: Zackery Castillo M.D. on 11/06/2024 at 15:31 Approved by: Zackery Castillo M.D. on 11/06/2024 at 15:32
== END ==
LOC: US 11:01
PROVIDERS: Referring Provider Obstetrics & Gynecology; Visit Provider Obstetrics & Gynecology
DX: Z34.82 Encounter for supervision of other normal pregnancy, second trimester (principal); Z3A.20 20 weeks gestation of pregnancy
CPT/HCPCS: 76811

== ENCOUNTER → 2024-11-13 14:13 | Outpatient (CLI) | payer OTHER, SELFPAY | PROVIDERS: Referring Provider Obstetrics & Gynecology; Visit Provider Obstetrics & Gynecology | DX: Z3A.21 21 weeks gestation of pregnancy (principal); Z34.92 Encounter for supervision of normal pregnancy, unspecified, second trimester | CPT/HCPCS: 36415; 82105 ==

== ENCOUNTER → 2024-12-21 07:48 | Outpatient (CLI) | payer OTHER, SELFPAY ==
[2024-12-21 10:56] LABS: GTT (PREG) 1 Hour PP 50gm Dose 102 mg/dL (76-139)
== END ==
PROVIDERS: Referring Provider Obstetrics & Gynecology; Visit Provider Obstetrics & Gynecology
DX: Z13.1 Encounter for screening for diabetes mellitus (principal)
CPT/HCPCS: 36415; 82950

== ENCOUNTER 2025-03-21 05:42 | Inpatient (IN) | payer OTHER, SELFPAY ==
[2025-03-21 06:11] LABS: Add Manual Diff / Slide Review NO; Hematocrit 38.3 % (36-46); Hemoglobin 13.2 g/dL (12.0-16.0); Lymphocytes Absolute Auto 1500 /uL (1100-4500); Mean Corpuscular HGB Conc 34.4 % (30-36); Mean Corpuscular Hemoglobin 31.1 PG (26-34); Mean Corpuscular Volume 90.6 fL (80-100); Platelet Count 155 X10^3/uL (150-400)
--- NOTE | 2025-03-21 06:40 | PM.OBHP.IH.1 ---
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 Estimated Delivery Date Method Current WG Current Estimate 03/24/25 LMP (Certain) 39w 4d Other Estimates 03/24/25 Ultrasound #1 39w 4d Estimated Gestational Age (weeks): 39w4d : 2 Para: 1 care: good care Dating criteria OB: LMP confirmed by 1st trimester US Ultrasounds: normal mid trimester US Obstetrical complications: none Medical complications OB: none Preadmission Labs Last OB Lab Results: Blood Type O Positive Today, 05:20 Antibody Screen Negative Today, 05:20 Hct, (36-46) 38.3 % Today, 05:20 Hgb, (12.0-16.0) 13.2 g/dL Today, 05:20 Hep Bs Antigen, (NEGATIVE) Negative s/c 09/11/24, 12:15 Hepatitis C Antibody, (NEGATIVE) Negative s/c 09/11/24, 12:15 Rubella Antibody, (>15) 12.5 IU/mL L 09/11/24, 12:15 VZV IgG Antibody, (Non Reactive) Reactive 09/11/24, 12:15 Glucose 1 Hr 50 gm, (76-139) 102 mg/dL 12/21/24, 09:48 Group B Strep (PCR) Neg for grp b strep 02/27/25, 13:52 Prior (ies) Past Pregnancies Del. Date GA/Weeks Labor Lgth Wt Sex Route Outcome Anesthesia Place Delv Breastfeed Preg Comp Name 01/05/23 39.4 72 7 lb 4 oz Female vaginal vacuum live - full term epidural IH Attempted Chanelle Hx # Term Pregnancies: 1 Number of Living Children: 1 Evaluation Evaluation Baseline heart rate: 135 Variability: Moderate (6-25) monitor accelerations: Present Monitor Decelerations: Absent Contraction Frequency (minutes): 4 Uterine Contraction Intensity: Strong/Firm Status: Category l Dilation: >/=5 cm (5) Effacement: 60-70% station: -1 Consistency: soft PFSH Medical History Vacuum-assisted vaginal delivery (~01/05/23) Abnormal Pap smear of cervix (~2017) Healthy adult Surgical History H/O umbilical hernia repair S/P ASA/PRK (advanced surface ablation photorefractive keratectomy) [place] teeth extracted Social History marital status: number of children: 1 household members: spouse and children lives independently: Yes caregiver/support person: Yes housing: house pets and animals: No education level: college (austen's degree) 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 ) special pauline needs: No travel history: recent (domestic only) seatbelt use: always water heater temp set < 120 deg: Yes working smoke detector in home: Yes fire extinguisher in home: Yes carbon monox detector in home: Yes firearms in home: No do you feel safe at home: Yes second hand exposure: No alcohol intake: former (2~/week when not ) substance use type: does not use during the past year weight has: other (back to normal non- weight) well-balanced diet: daily or most days daily servings fruits/ve-4 caffeine: Yes (single cup coffee in AM) Type(s) of exercise: running frequency: 5-6 times per week Meds Home Medications and Allergies Home Medications ?Medication ?Instructions ?Recorded ?Confirmed ?Type vit no.95-ferrous 1 tab PO DAILY 07/31/24 03/13/25 History fumarate 28 mg-folic acid 800 mcg tablet ( Multivitamins) metoclopramide HCl 5 mg tablet 5 - 10 mg (1 - 2 x 5 mg) PO Q6H 08/21/24 03/13/25 Rx (Reglan) PRN nausea and vomiting #60 tabs promethazine 12.5 mg rectal 12.5 mg FL Q4-6H PRN nausea and 08/21/24 03/13/25 Rx suppository vomiting #12 ea ondansetron 4 mg disintegrating 4 mg PO Q6H PRN nausea and 09/17/24 03/13/25 Rx tablet vomiting #20 tabs Allergies Allergy/AdvReac Type Severity Reaction Status Date / Time No Known Drug Allergies Allergy Verified 03/13/25 15:30 OB Exam Narrative Exam Narrative: Breathing through contractions, sitting on edge of bed HENMT Head: normocephalic and atraumatic Resp Effort & Inspection: normal respiratory effort Cardio Rate: regular rate Rhythm: regular rhythm Extremities Lower extremity: Yes normal to inspection GI Inspection: distended (Gravid) Palpation: Yes soft External Female Exam: Yes normal external appearance Objective Labs 03/21/25 05:20 Labs: Laboratory Results - last 24 hr 03/21/25 05:20 WBC 11.8 H RBC 4.23 Hgb 13.2 Hct 38.3 MCV 90.6 MCH 31.1 MCHC 34.4 RDW 13.6 Plt Count 155 Neut % (Auto) 79.4 H Lymph % (Auto) 12.5 L [place] % (Auto) 7.1 Eos % (Auto) 0.8 L Baso % (Auto) 0.2 Neut # (Auto) 9300 H Lymph # (Auto) 1500 [place] # (Auto) 800 Eos # (Auto) 100 Baso # (Auto) 0 Assessment and Plan Assessment and Plan Assessment and Plan narrative: IUP at 39w4d - Reassuring Status Labor - Expectant management for now - OK for epidural per patient request - She is open to augmentation once comfortable History of VAVD History of 3rd degree perineal laceration RNI Laney Ramirez DO
--- NOTE | 2025-03-21 07:20 | PM.AN.REGBLK ---
Regional Block Pre-procedure Procedure: Continuous Lumbar Epidural for L&D Attending OB provider: Mera Cerna PMH/ROS narrative: Healthy presents in active labor, requesting YASMIN for labor pain. PSH/Anesthesia history narrative: Prior epidural without complication. Prior general anesthesia for hernia repair without anesthetic complication. Exam narrative: See pre-anesthesia eval form. ASA Class: II Labs: Hct 38.3 % (36-46) 03/21/25 05:20 Plt Count 155 X10^3/uL (150-400) 03/21/25 05:20 Medications: Current Medications Generic Name Dose Route Start Last Admin Trade Name Freq PRN Reason Stop Dose Admin Calcium Carbonate 1,000 mg 03/21/25 05:47 Calcium Carbonate 500 Mg Tab PO Q2HR PRN Dyspepsia Carboprost Tromethamine 250 mcg 03/21/25 05:47 Carboprost 250 Mcg/Ml Ampul IM Q90M PRN Bleeding Diphenhydramine HCl 25 mg 03/21/25 07:18 Diphenhydramine 50 Mg/Ml Vial IV 03/22/25 07:19 Q3HR PRN PRURITUS Oxytocin/Lactated Ringer's 30 unit in 500 mls @ 200 mls/hr 03/21/25 05:47 Oxytocin Premix IV CONT PRN Bleeding Protocol Tranexamic Acid 1,000 mg/ 100 mls @ 600 mls/hr 03/21/25 05:47 Sodium Chloride IV NOW PRN Bleeding Oxytocin/Lactated Ringer's 30 unit in 500 mls @ 2 mls/hr 03/21/25 06:00 Oxytocin Premix IV TITRATE ANDREW Protocol 2 MILLIUNIT/MIN Lactated Ringer's 1,000 mls @ 100 mls/hr 03/21/25 06:00 Lactated Ringers IV 03/21/25 15:59 CONT ANDREW Lidocaine HCl 20 ml 03/21/25 05:47 Lidocaine 1% 20 Ml INJ INTRA-OP PRN Post Delivery Methylergonovine Maleate 0.2 mg 03/21/25 05:47 Methylergonovine 0.2 Mg Tablet PO Q6HR PRN Heavy Bleeding Methylergonovine Maleate 0.2 mg 03/21/25 05:47 Methylergonovine 0.2 Mg/Ml Vial IM NOW PRN Bleeding Metoclopramide HCl 10 mg 03/21/25 07:18 Metoclopramide 10 Mg/2 Ml Inj IV 03/22/25 07:19 Q4H PRN Nausea Mineral Oil 30 ml 03/21/25 05:47 Mineral Oil 30 Ml Udc TOP PRN PRN Version Misoprostol 800 mcg 03/21/25 05:47 Misoprostol 200 Mcg Tablet TX NOW PRN Bleeding Misoprostol 400 mcg 03/21/25 05:47 Misoprostol 200 Mcg Tablet SL NOW PRN Bleeding Nalbuphine HCl 5 mg 03/21/25 07:18 Nalbuphine 20 Mg/Ml Ampul IV Q6H PRN PRURITIS Naloxone HCl 0.2 mg 03/21/25 05:47 Naloxone 0.4 Mg/Ml Vial IV Q2MIN PRN Opiate Reversal Naloxone HCl 0.4 mg 03/21/25 07:18 Naloxone 0.4 Mg/Ml Vial IV Q2MIN PRN Opiate Reversal Ondansetron HCl 4 mg 03/21/25 05:47 Ondansetron 4 Mg/2 Ml Inj IV Q4HR PRN Nausea And Vomiting Ondansetron HCl 4 mg 03/21/25 07:18 Ondansetron 4 Mg/2 Ml Inj IV 03/22/25 07:19 Q6HR PRN Nausea Oxytocin 10 unit 03/21/25 05:47 Oxytocin 10 Unit/Ml Vial IM NOW PRN Bleeding Allergies: Allergies Allergy/AdvReac Type Severity Reaction Status Date / Time No Known Drug Allergies Allergy Verified 03/13/25 15:30 Procedure Insertion date: 03/21/25 Insertion time: 06:58 Prep/Local: 1% lidocaine (5mL + CHG to back for skin prep) Interspace: L3/4 Patient position: sitting Needle: 18 gauge Du Loss of resistance with: saline GIANLUCA at (cm): 6 Catheter placed at SKIN (cm): 12 Catheter in SPACE (cm): 6 Initial Medications TEST DOSE time: 07:00 TEST DOSE: 1.5% lidocaine with epinephrine 1:200k (mL): 3 BOLUS DOSE time: 07:03 BOLUS DOSE (mL): 10 BOLUS DOSE med: 0.25% bupivacaine Infusion INFUSION: 0.125% bupivacaine and with fentanyl 2 mcg/mL Initial rate (mL/hr): 8 Post-procedure Anesthesia date START: 03/21/25 Anesthesia time START: 06:35 Anesthesia date END: 03/21/25 Anesthesia time END: 11:31 Post-procedure Anesthesia Assessment: Yes CV function: HR/BP stable, Yes Resp function: RR/sat/airway adequate, Yes Post-op hydration adequate, Yes Pain control adequate, Yes Nausea & vomiting absent, Yes Temperature > 36 C, Yes Mental status appropriate and No Anesthesia complications
[2025-03-21] MEDS: OXYTOCIN PREMIX 30 UNIT/500 ML PLAST..BAG IV (08:58)
[2025-03-21] MEDS: LACTATED RINGERS 1,000 ML 100 ML IV (08:59)
[2025-03-21] MEDS: TRANEXAMIC ACID 1,000 MG in SODIUM CHLORIDE 0.9% 100 ML 600 MG IV (12:01)
--- NOTE | 2025-03-21 12:01 | PM.OBPRVD ---
Events: Labor Augmentation (Ineffective contraction pattern following epidural, pitocin augmentation started) Labor & Delivery Delivery date: 03/21/25 Delivery Time: 11:31 Cervical ripening method: none Induction method: none Delivery augmentation: pitocin Delivery monitor: external FHT Route of delivery: Episiotomy description: None L&D Laceration Description: Periurethral - 3rd Degree (Grade 3A) Delivery repair: vicryl (2-0 for capsule reinforcement, and 3-0 for remainder of laceration) Estimated blood loss (mL): 1,000 (Majority of bleeding from laceration itself) Quantitative Blood Loss: 1,005 Anesthesia Type: Epidural Narrative: The patient was admitted for labor. She had an epidural placed. Contractions began to space so pitocin augmentation was started. Heart Tracing was category I and overall reassuring. She was found to be completely dilated and began pushing. She pushed extremely well. The head delivered followed by the aftercoming body. Baby was placed onto the maternal abdomen. Delayed cord clamping was performed. Cord was doubly clamped and cut. Placenta then delivered intact. Fundus was firm. There was brisk bleeding from the third degree laceration, which was controlled with pressure. The grade 3A laceration was then repaired in the usual fashion, by reinforcing the EAS capsule with 2-0 vicryl, then the remainder of the laceration was repaired with 3-0 vicryl. Total length of the laceration was 5 cm. Post repair, the perineum was intact. A small right hymenal tear was bleeding so was controlled with 3-0 vicryl figure-of-8. At this time, hemostasis was ensured. QBL noted to be 1005 mL. Fundus remained firm. Misoprostol 800 mcg was placed IA, and Tranexamic acid 1000 mg given IV for additional bleeding prophylaxis. Patient tolerated the procedure well. Mother and baby then entered the revocery phase in stable condition. Baby 1: Infant gender: Male Presentation: vertex Position: Right Occiput Anterior Placenta delivery description: Spontaneous Cord Vessel Description: 3 Vessels score (1 min): 8 score (5 min): 9 weight: 8 lb 2.9 oz Plan for aftercare: Routine care and Other (Monitor bleeding closely. Low threshold for uterotonic medications.)
[2025-03-21] MEDS: ONDANSETRON 4 MG/2 ML INJ IV (12:32)
[2025-03-21] MEDS: DERMOPLAST SPRAY 20% 60 ML 1 SPRAY TOP (14:33)
[2025-03-21] MEDS: IBUPROFEN 600 MG TABLET PO ×2 (14:39→20:52)
[2025-03-21] MEDS: ACETAMINOPHEN 325 MG TABLET 650 MG PO ×2 (14:39→20:51)
[2025-03-21] MEDS: DOCUSATE 100 MG CAPSULE PO (20:52)
[2025-03-22] MEDS: IBUPROFEN 600 MG TABLET PO ×2 (03:03→09:02)
[2025-03-22] MEDS: ACETAMINOPHEN 325 MG TABLET 650 MG PO ×2 (03:03→09:02)
[2025-03-22] MEDS: DOCUSATE 100 MG CAPSULE PO (09:02)
[2025-03-22] MEDS: FERROUS SULFATE 325 MG TABLET PO (09:02)
--- NOTE | 2025-03-22 09:29 | PM.OBDS.1 ---
Discharge Providers Provider Date of admission: 03/21/25 05:42 Discharge Date: 03/22/25 Primary care physician: Kip CRAIG Provider Consults: 03/21/25 05:47 Consult to Anesthesiology Urgent Comment: Consulting Provider: Anesthesiologist Reason for consultation: Epidural 03/21/25 12:50 Consult to Ops Analyst Routine Comment: Discharge provider: Denny Singletary MD Summary Hospital Course Date Patient Seen: 03/22/25 Time Patient Seen: 09:30 Diagnoses: Intrauterine gestation, 39+ 4 weeks, delivered by spontaneous vaginal Third-degree perineal laceration Hospital Course: The patient was admitted on the morning of 03/21/2025 in prodrome of labor and progressed well through the day after placement of a continuous lumbar epidural for anesthesia in labor. Delivered later that day a viable male with Apgars of 8/9 and a weight of the patch to [place]. At the time of delivery she experienced a stage III A third-degree obstetrical laceration which was repaired successfully by the attending director global, Dr. Laney Ramirez. Following delivery both mother and baby preemie well with the mother experiencing prompt return of bowel and bladder function, she is ambulating independently, tolerating regular diet, and her pain is well relieved with oral pain medications. She will be discharged at this time in an afebrile normotensive condition to home after counseling regarding precautionary symptoms, limitations of activity, medications, and plans for follow-up which will be in 6 weeks. Time Spent with Patient Time attestation: Total time spent providing and/or coordinating discharge services: Objective Labs 03/21/25 05:20 Exam Const General: cooperative and comfortable [facility] Head: normal to inspection, normocephalic and atraumatic Eyes General: appearance normal, both eyes and all related structures Resp Effort & Inspection: normal respiratory effort and able to speak in complete sentences Auscultation: clear to auscultation bilaterally Cardio Rate: regular rate Rhythm: regular rhythm Heart Sounds: S1 normal, S2 normal and no murmurs GI Inspection: normal to inspection Palpation: soft, no hepatosplenomegaly and mass (Firm nontender fundus, U -4) External Female Exam: other (Intact repair, minimal lochia) Extrem Right lower extremity: normal to inspection Discharge Plan Discharge Plan Patient Disposition: Home Provider Discharge Comment: Please review the written instructions you received when you were discharged from the hospital. Your follow-up appointment will be scheduled for 6 weeks after delivery and we look forward to seeing you then. If however in the meanwhile, you have any questions, concerns, or other issues, please contact the office either by phone at [phone], or via the patient portal. Discharge orders & Medications Prescriptions: No Action ondansetron 4 mg tablet,disintegrating 4 mg PO Q6H PRN (Reason: nausea and vomiting) Qty: 7 0RF Follow up/Referrals: Denny Singletary MD [Physician, [facility]] Referral Note: Please follow up with Dr. Singletary for a 6 week visit on April 30 @ 0830am Discharge Health Status Multidrug resistant organism: No MDRO Diet/Activity/Treatments Diet: Diet as Tolerated Activity: As tolerated Other treatments: [id number] Tylenol and/or ibuprofen may be used for additional pain relief. [id number] stool softeners and/or MiraLax may be used as needed for constipation. Skin/Wound/Dressing Care Report to your healthcare provider any signs of infection, such as:: chills, fever, increased pain, unusual drainage and unusual redness Dressing: N/A Visit Report/Discharge Packet Instructions: DI for Labor and Delivery, Vaginal , DI for and Nipple Soreness Stand Alone Forms: Discharge: Care Discharge Data Primary Care Provider: Kip Zaidi
[2025-03-22 09:36] VITALS: BP 105/63; PULSE 90; RESP 15; TEMP 37.2
[2025-03-22] MEDS: MEASLES,MUMPS,RUBELLA VACC/PF 0.5 ML VIAL SUBCUT (10:05)
== END 2025-03-22 10:18 | disposition home or self-care (01) | DRG 768 ==
PROVIDERS: Admitting Provider Student in an Organized Health Care Education/Training Program; Referring Provider Student in an Organized Health Care Education/Training Program; Visit Provider Student in an Organized Health Care Education/Training Program
DX: O70.21 Third degree perineal laceration during delivery, IIIa (principal); Z37.0 Single live birth; O70.0 First degree perineal laceration during delivery; Z3A.39 39 weeks gestation of pregnancy
CPT/HCPCS: 36415; 59050; 59400; 59409; 85025; 86850; 86900; 86901; G0379; J2405; J2590; S0191

== ENCOUNTER 2025-06-05 14:09 | Emergency (ER) | payer OTHER, SELFPAY ==
[2025-06-05 14:32] VITALS: BP 111/73; PULSE 114; RESP 17; TEMP 36.6; O2SAT 95; BMI 26.6
[2025-06-05] MEDS: ONDANSETRON 4 MG ODT SL (14:41)
[2025-06-05 16:02] LABS: Culture Indicated Urine Specimen Cultured; Ictotest Urine Negative (Negative)
[2025-06-05 16:44] VITALS: BP 97/61; PULSE 111; O2SAT 98
[2025-06-05 17:05] LABS: Add Manual Diff / Slide Review NO; Hematocrit 43.4 % (36-46); Hemoglobin 15.0 g/dL (12.0-16.0); Lymphocytes Absolute Auto 500 /uL (1100-4500); Mean Corpuscular HGB Conc 34.6 % (30-36); Mean Corpuscular Hemoglobin 30.3 PG (26-34); Mean Corpuscular Volume 87.4 fL (80-100); Platelet Count 212 X10^3/uL (150-400)
[2025-06-05 17:21] LABS: Alanine Aminotransferase 32 IU/L (<35); Albumin 4.8 g/dL (3.5-5.0); Albumin Globulin Ratio 1.5 (1.0-2.8); Alkaline Phosphatase 67 U/L (38-126); Blood Urea Nitrogen 11 mg/dL (7-17); Calcium 9.2 mg/dL (8.4-10.2); Carbon Dioxide 20 mmol/L (22-32); Chloride 106 mmol/L (98-107); Estimated Glomerular Filt Rate > 60 mL/min (>60); Globulin 3.1 g/dL (1.7-4.1); Glucose 100 mg/dL (70-99); HEMOLYSIS 21 (0-50); Lipase 64 U/L (23-300); Potassium 4.0 mmol/L (3.4-5.1); Sodium 138 mmol/L (137-145); Total Protein 7.9 g/dL (6.3-8.2)
--- NOTE | 2025-06-05 18:10 | ED.NAVMDI ---
HPI - Nausea/Vomiting/Diarrhea General Chief complaint: Nausea/Vomiting/Diarrhea Stated complaint: Vomiting 14 hours Time Seen by Provider: 06/05/25 17:11 Source: patient Mode of arrival: Ambulatory History of Present Illness HPI Narrative: 30-year-old female now 2-1/2 months , had some limited bleeding last week that might have been her menses, has had multiple episodes of nausea and vomiting nonbloody since midnight early there this morning through the day. Denies abdominal discomfort. Denies back pain. Denies chest pain cough shortness of breath. Denies headache neck pain photophobia. Was given Zofran in triage, and IV fluids, feels better. Related Data Previous Rx's ?Medication ?Instructions ?Recorded ondansetron 4 mg disintegrating 4 mg PO Q6H PRN nausea and 06/05/25 tablet vomiting #7 tabs Allergies Allergy/AdvReac Type Severity Reaction Status Date / Time No Known Drug Allergies Allergy Verified 06/05/25 14:32 Patient History Medical History Vacuum-assisted vaginal delivery (~01/05/23) Abnormal Pap smear of cervix (~2017) Healthy adult Surgical History H/O umbilical hernia repair S/P ASA/PRK (advanced surface ablation photorefractive keratectomy) [place] teeth extracted Social History marital status: number of children: 1 household members: spouse and children lives independently: Yes caregiver/support person: Yes housing: house pets and animals: No education level: college ([employer] degree) 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 occupational 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/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 ) special pauline needs: No travel history: recent (domestic only) seatbelt use: always water heater temp set < 120 deg: Yes working smoke detector in home: Yes fire extinguisher in home: Yes carbon monox detector in home: Yes firearms in home: No do you feel safe at home: Yes Smoking Status: Never smoker second hand exposure: No alcohol intake: former (2~/week when not ) substance use type: does not use during the past year weight has: other (back to normal non- weight) well-balanced diet: daily or most days daily servings fruits/ve-4 caffeine: Yes (single cup coffee in AM) Type(s) of exercise: running frequency: 5-6 times per week Smoking Status: Never smoker Exam Narrative Exam Narrative: GENERAL: Well-developed patient, in mild distress. HEAD: Atraumatic. Normocephalic. EYES: Pupils equal round and reactive. Extraocular motions intact. No scleral icterus. No injection or drainage. ENT: Nose without bleeding, purulent drainage. Throat without erythema, tonsillar hypertrophy or exudate. Airway patent. NECK: Trachea midline. Non tender CARDIOVASCULAR: Regular rate and rhythm without murmurs, gallops, or rubs. RESPIRATORY: Clear to auscultation. Breath sounds equal bilaterally. No wheezes, rales, or rhonchi. GASTROINTESTINAL: Abdomen soft, non-tender, nondistended. EXTREMITIES: No edema or joint tenderness. BACK: Nontender without deformity or crepitance. No flank tenderness. NEURO: AOx3. Motor functions grossly nonfocal. SKIN: No rash or erythema of visible areas Initial Vital Signs Initial Vital Signs: Vital Signs Temperature 98 F 06/05/25 14:32 Pulse Rate 114 H 06/05/25 14:32 Respiratory Rate 17 06/05/25 14:32 Blood Pressure 111/73 06/05/25 14:32 Pulse Oximetry 95 06/05/25 14:32 Oxygen Delivery Method Room Air 06/05/25 14:32 Course Orders Ordered: Discontinued Medications Diphtheria/Tetanus/Acell Pertussis (Tet,Diph,Pertuss(Acell),Vac/Pf 0.5 Ml Syringe) 0.5 ml IM .ONCE ONE Stop: 06/05/25 19:10 Last Admin: 06/05/25 19:32 Dose: Not Given Documented By: LESLIE Sodium Chloride (Normal Saline 0.9%) 1,000 mls @ 1,000 mls/hr IV BOLUS ONE Stop: 06/05/25 18:10 Ondansetron HCl (Ondansetron 4 Mg Odt) 4 mg SL NOW ONE Stop: 06/05/25 14:37 Last Admin: 06/05/25 14:41 Dose: 4 mg Documented By: DON Ondansetron HCl (Ondansetron 4 Mg/2 Ml Inj) 4 mg IV NOW PRN PRN Reason: Nausea And Vomiting Ondansetron HCl (Ondansetron 4 Mg Odt Prepack) 1 bottle MISC DIRECTED ONE Stop: 06/05/25 19:17 Last Admin: 06/05/25 19:32 Dose: 1 bottle Documented By: LESLIE Vital Signs Vital signs: Vital Signs - 8 hr 06/05/25 14:32 06/05/25 16:44 Temperature 98 F Pulse Rate 114 H 111 H Respiratory Rate 17 Blood Pressure 111/73 97/61 Pulse Oximetry 95 98 Oxygen Delivery Method Room Air Room Air MDM - Nausea/Vomiting/Diarrhea Lab Data Attestation: I reviewed the patient's lab results. Lab results narrative: White blood cell count 4500, hemoglobin 15, platelets adequate. Glucose 100. Normal renal function, electrolytes. Serum CO2 20 slight decreased. Liver functions and lipase normal. Urinalysis not convincing for infection, you know UTI symptoms, urine culture triggered. Urine hCG negative. 06/05/25 16:50 06/05/25 16:50 Labs: Lab Results 06/05/25 06/05/25 Range/Units 14:40 16:50 WBC 4.5 (4.5-11.0) X10^3/uL RBC 4.97 (4.0-5.2) X10^6/uL Hgb 15.0 (12.0-16.0) g/dL Hct 43.4 (36-46) % MCV 87.4 (80-100) fL MCH 30.3 (26-34) PG MCHC 34.6 (30-36) % RDW 12.8 (11.6-14.8) % Plt Count 212 (150-400) X10^3/uL Neut % (Auto) 83.5 H (50-75) % Lymph % (Auto) 11.8 L (25-40) % [place] % (Auto) 4.5 (3-14) % Eos % (Auto) 0.1 L (2-4) % Baso % (Auto) 0.1 (0-2) % Neut # (Auto) 3800 (4903-2005) /uL Lymph # (Auto) 500 L (4491-5772) /uL [place] # (Auto) 200 (0-900) /uL Eos # (Auto) 0 (0-450) /uL Baso # (Auto) 0 (0-100) /uL Sodium 138 (137-145) mmol/L Potassium 4.0 (3.4-5.1) mmol/L Chloride 106 (98-107) mmol/L Carbon Dioxide 20 L (22-32) mmol/L BUN 11 (7-17) mg/dL Creatinine 0.89 (0.52-1.04) mg/dL Estimated GFR > 60 (>60) mL/min BUN/Creatinine Ratio 12.4 (6-22) Glucose 100 H (70-99) mg/dL Calcium 9.2 (8.4-10.2) mg/dL Total Bilirubin 0.7 (0.2-1.3) mg/dL AST 28 (14-36) IU/L ALT 32 (<35) IU/L Alkaline Phosphatase 67 (38-126) U/L Total Protein 7.9 (6.3-8.2) g/dL Albumin 4.8 (3.5-5.0) g/dL Globulin 3.1 (1.7-4.1) g/dL Albumin/Globulin Ratio 1.5 (1.0-2.8) Lipase 64 (23-300) U/L Ur Bilirubin Confirm Negative (Negative) Urine RBC 0-1/hpf (0-5/HPF) Urine WBC None seen (0-5/HPF) Ur Squamous Epith Cells 0-1 /hpf (0-5/HPF) Ur Renal Epithelial Cell 5-10/hpf H (0-1/HPF) Urine Bacteria None seen (None) Ur Culture Indicated? Specimen cultured Vol Urine Centrifuged 10ml (spun) Point of Care Testing Test Results Negative Urine Dip Bedside Urine Glucose Negative Bedside Urine Bilirubin + 1 Bedside Urine Ketone ++ 40 Urine Specific [place] 1.020 Bedside Urine Occult Blood + Bedside Urine pH 6.0 Bedside Urine Protein +/- 15 Bedside Urine Urobilinogen - Negative Bedside Urine Nitrite - Negative Bedside Urine Leukocytes - Negative Esterase MDM Narrative Medical decision making narrative: 30-year-old female about 2-1/2 months , doing well, now having nausea and vomiting since early this morning multiple episodes, nonbloody. Afebrile, sirs screen negative. At triage was given ODT Zofran and IV fluids, feels better. Denies recent abdominal pain, chest discomfort, UTI symptoms. Labs pending. Lab data: White blood cell count 4500, hemoglobin 15, platelets adequate. Glucose 100. Normal renal function, electrolytes. Serum CO2 20 slight decreased. Liver functions and lipase normal. Urinalysis not convincing for infection, you know UTI symptoms, urine culture triggered. Urine hCG negative. Labs unremarkable. HCG negative. No convincing UTI symptoms, urine culture pending. Hold antibiotics pending urine culture results. Patient agrees. Will dispense ODT Zofran for discharge. Requests prescription for ODT Zofran as well, sent to her requested pharmacy. She is agreeable. She would like to go home. Follow up with PCP if any recurrence of symptoms. Discharged home per patient request. Discharge Plan Departure Patient Disposition: Home Clinical Impression: Nausea and vomiting Instructions: Nausea and Vomiting-Adult Activity Restrictions/Additional Instructions: Nausea and vomiting unclear cause. You felt better after ODT oral dissolvable Zofran given at triage, and we are given IV fluids. Screening labs unremarkable, negative urine test. Urine not convincing for infection, though urine culture was sent, and you did not have obvious urine infection like symptoms. Hold antibiotics for now, pending urine culture result. Dispensed home pack oral dissolvable Zofran to help control nausea to use if needed. Recheck with your regular doctor if symptoms recur, return to this/nearest emergency department for any change worsening symptoms or concerns prior. Prescriptions: New ondansetron 4 mg tablet,disintegrating 4 mg PO Q6H PRN (Reason: nausea and vomiting) Qty: 7 0RF Referrals: ProviderKip [Primary Care Provider, Family Practice] Stand Alone Forms: Patient Portal/API
[2025-06-05] MEDS: ONDANSETRON 4 MG ODT PREPACK 1 BOTTLE MISC (19:32)
[2025-06-05 19:33] VITALS: BP 141/72; PULSE 110; RESP 16; O2SAT 99
== END 2025-06-05 19:33 | disposition home or self-care (01) ==
PROVIDERS: Emergency Medicine; Emergency Provider Emergency Medicine
DX: R11.2 Nausea with vomiting, unspecified (principal)
CPT/HCPCS: 36415; 80053; 81003; 81015; 81025; 83690; 85025; 87086; 99283; 99284